=== PATIENT | female | born 2000 | race Caucasian/White ===

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

== ENCOUNTER 2020-04-08 11:05 | Emergency (ER) | payer MEDICAID, OTHER ==
[2020-04-08] MEDS ORDERED: ONDANSETRON HCL 4 MG/2 ML VIAL ONE (12:01)
[2020-04-08] MEDS ORDERED: ACETAMINOPHEN 325 MG TAB ONE (12:01)
[2020-04-08] MEDS ORDERED: SODIUM CHLORIDE 0.9% 1000ML 1,000 ML IV ONE (12:13)
== END 2020-04-08 13:20 | disposition home or self-care (01) ==
LOC: EDH 11:05
DX: O26.891 Other specified pregnancy related conditions, first trimester (principal); K59.00 Constipation, unspecified; R82.71 Bacteriuria; Z3A.01 Less than 8 weeks gestation of pregnancy
CPT/HCPCS: 36415; 76705; 76817; 80053; 81001; 81025; 83690; 84702; 85025; 87088; 96374; 99285; J2405; J7030

== ENCOUNTER 2020-10-09 13:48 | Emergency (ER) | payer MEDICAID ==
[2020-10-09] MEDS ORDERED: ACETAMINOPHEN 325 MG TAB ONE (14:32)
== END 2020-10-09 14:59 | disposition home or self-care (01) ==
LOC: EDH 13:48
DX: S53.492A Other sprain of left elbow, initial encounter (principal); X50.9XXA Other and unspecified overexertion or strenuous movements or postures, initial encounter; Y93.89 Activity, other specified; Y92.098 Other place in other non-institutional residence as the place of occurrence of the external cause; Y99.8 Other external cause status
CPT/HCPCS: 73080

== ENCOUNTER 2021-02-14 14:34 | Emergency (ER) | payer MEDICAID | END 2021-02-14 15:32 | disposition home or self-care (01) | LOC: EDH 14:34 | DX: S20.469A Insect bite (nonvenomous) of unspecified back wall of thorax, initial encounter (principal); W57.XXXA Bitten or stung by nonvenomous insect and other nonvenomous arthropods, initial encounter; Y93.89 Activity, other specified; Y92.89 Other specified places as the place of occurrence of the external cause; Y99.8 Other external cause status ==

== ENCOUNTER 2022-10-18 23:44 | Emergency (ER) | payer MEDICAID, OTHER ==
[~2022-10-18] VITALS: Ht 154.9 cm; Wt 70.3 kg
[2022-10-19 00:06] LABS: APPEARANCE,URINE CLOUDY (CLEAR); BILIRUBIN,URINE NEGATIVE (NEGATIVE); COLOR,URINE YELLOW (YELLOW); GLUCOSE, URINE (UA) NEGATIVE (NEGATIVE); KETONES,URINE NEGATIVE (NEGATIVE); LEUKOCYTE ESTERASE ,URINE SMALL Leu/uL (NEGATIVE); NITRATE,URINE NEGATIVE (NEGATIVE); OCCULT BLOOD,URINE MODERATE (NEGATIVE); PH,URINE 6.5 (5.0-8.0); PROTEIN,URINE 100 mg/dL (NEGATIVE); UROBILINOGEN,URINE 0.2 mg/dL (0.2-1.0)
[2022-10-19 00:15] LABS: BACTERIA,URINE Few /HPF (None Seen); SQUAMOUS EPITHELIAL CELL,UR Few /HPF (0-2); WBC,URINE 51-100 /HPF (0-1)
[2022-10-19 00:22] VITALS: BP 124/76
[2022-10-19] MEDS ORDERED: IBUP-1493 PO (00:48)
[2022-10-19] MEDS ORDERED: CEFU500T67 PO (00:48)
[2022-10-19] MEDS ORDERED: CEFUROXIME AXETIL 250 MG TABLET PO SCH (01:00)
[2022-10-19] MEDS ORDERED: IBUPROFEN 800 MG TAB PO ONE (01:00)
[2022-10-19] MEDS ORDERED: CEFTRIAXONE 1G VIAL ONE (01:02)
[2022-10-19] MEDS ORDERED: CEFTRIAXONE 1G VIAL IM ONE (01:30)
== END 2022-10-19 01:25 | disposition home or self-care (01) ==
LOC: EDH 23:44
DX: N39.0 Urinary tract infection, site not specified (principal)
CPT/HCPCS: 99283; 87077; 87088; 87186; 81001; 81025; 96372; J0696